=== PATIENT | female | born 1975 | race Caucasian/White ===

== ENCOUNTER 2017-09-11 05:57 | Emergency (ER) | payer MEDICAID ==
[~2017-09-11] VITALS: Ht 172.7 cm; Wt 54.6 kg
[2017-09-11 06:06] VITALS: Ht 172.7 cm; Wt 54.6 kg
--- NOTE | 2017-09-11 06:31 | ERD ---
ER Documentation Chief Complaint Chief Complaint vaginal bleed x5 days, getting worse, 10 weeks . HPI This is a 42-year-old female who presents the emergency department today complaining of vaginal bleeding for the past week. Patient states she is approximately 10 weeks . States that days ago she went to another hospital and was told everything was fine was given antibiotics to treat bacterial vaginosis and given vitamins that she does not yet have a OB doctor. States she has intermittent cramping but has not taken any medication for the pain. Denies any vomiting, dysuria, fevers or chills. ROS All systems reviewed and are negative except as per history of present illness. Medications Home Meds Active Scripts Cephalexin* (Keflex*) 500 Mg Capsule, 500 MG PO QID for 7 Days, CAP Prov:KEVIN BARROSO PA-C 09/11/17 Acetaminophen* (Tylophen*) 500 Mg Capsule, 1 CAP PO Q6H Y for PAIN AND OR ELEVATED TEMP, #30 CAP Prov:KEVIN BARROSO PA-C 09/11/17 Metronidazole* (Metrogel* Vaginal) 0.75% -70 Gram Gel.w.appl, 1 APPFUL VAG QHS for 5 Days, #1 TUB Prov:KEVIN BARROSO PA-C 09/11/17 Physical Exam Vitals Vital Signs Date Time Temp Pulse Resp B/P Pulse Ox O2 Delivery O2 Flow Rate FiO2 09/11/17 06:06 97.5 99 18 123/82 96 Physical Exam Const: NAD Head: Atraumatic Eyes: Normal Conjunctiva ENT: Normal External Ears, Nose and Mouth. Neck: Full range of motion..~ No meningismus. Resp: Clear to auscultation bilaterally Cardio: Regular rate and rhythm, no murmurs Abd: Soft, mild pelvic tenderness non distended. Normal bowel sounds no tenderness at McBurney's. Skin: No petechiae or rashes Back: No midline or flank tenderness Ext: No cyanosis, or edema Neur: Awake and alert Psych: Normal Mood and Affect Result Diagram: 09/11/17 0643 Results 24 hrs Laboratory Tests Test 09/11/17 06:25 09/11/17 06:43 Urine Color YELLOW Urine Clarity CLOUDY Urine pH 6.0 Urine Specific [place] 1.016 Urine Ketones TRACEmg/dL Urine Nitrite NEGATIVEmg/dL Urine Bilirubin NEGATIVEmg/dL Urine Urobilinogen NEGATIVEmg/dL Urine Leukocyte Esterase 1+Luke/ul Urine Microscopic RBC 4/HPF Urine Microscopic WBC 9/HPF Urine Squamous Epithelial Cells MODERATE/HPF Urine Bacteria FEW/HPF Urine Mucus MANY/HPF Urine Hemoglobin 3+mg/dL Urine Glucose NEGATIVEmg/dL Urine Total Protein 1+mg/dl White Blood Count 6.810^3/ul Red Blood Count 3.8010^6/ul Hemoglobin 12.0g/dl Hematocrit 35.7% Mean Corpuscular Volume 93.9fl Mean Corpuscular Hemoglobin 31.6pg Mean Corpuscular Hemoglobin Concent 33.6g/dl Red Cell Distribution Width 12.4% Platelet Count 62612^3/UL Mean Platelet Volume 11.0fl Neutrophils % 60.4% Lymphocytes % 32.7% Monocytes % 6.3% Eosinophils % 0.1% Basophils % 0.4% Nucleated Red Blood Cells % 0.0/100WBC Neutrophils # 4.110^3/ul Lymphocytes # 2.210^3/ul Monocytes # 0.410^3/ul Eosinophils # 0.010^3/ul Basophils # 0.010^3/ul Nucleated Red Blood Cells # 0.010^3/ul Beta HCG, Quantitative 918022.0mIU/ml DIAGNOSTIC IMAGING REPORT Patient: JAYRO MCCOY : 1975 Age: 42 Sex: F MR #: [id number] DOS: 09/11/17 0625 Ordering MD: KEVIN BARROSO PA-C Location: [facility] Room/Bed: PROCEDURE: US OB. CLINICAL INDICATION: Vaginal bleeding . Clinical estimate gestational age is 10 weeks 1 day with estimated date of delivery 04/08/2018 TECHNIQUE: Transabdominal views of the pelvis are available for review. COMPARISON: No prior studies are available for comparison. FINDINGS: [place]-rump length: 3.56 cm heart rate: 171 beats per minute Ultrasound estimated gestational age: 10 weeks 3 days Estimated date of delivery: 04/06/2018 There is a 2.7 x 2.1 x 3.6 cm area of decreased echogenicity adjacent to the gestational sac suggestive of a subchorionic bleed. No ovarian or adnexal mass lesion is seen. There is a 2 cm left ovarian likely corpus luteum. There is no free fluid. IMPRESSION: Single live intrauterine with an estimated gestational age of 10 weeks 3 days based on ultrasound measurements. Suggestive of subchorionic bleed noted above. RPTAT: HJES .Randy Benavidez MD, Date Time Electronically viewed and signed by .Randy Benavidez MD, MD on 09/11/2017 08:59 .S/ CC: KEVIN BARROSO PA-C Procedures/MDM This is a A1 42-year-old female who presents to the emergency department today complaining of vaginal bleeding. Patient states she is approximately 10 weeks. Given this I did obtain a complete OB workup. Laboratory work no elevated white blood cell count. She is not anemic. Platelets are within normal. UA shows 1+ leukocyte esterase 9 white blood cells. Urine was sent for culture. Beta quant hCG 656523.0 Rh status A + Ultrasound single live intrauterine with an estimated gestational age of 10 weeks and 3 days based on ultrasound measurements. There is heart rate of 171 bpm. There is no ovarian or adnexal mass seen. There is a 2 cm left ovarian likely corpus luteum cyst. There is no free fluid. Patient symptoms at this time is consistent with vaginal bleeding in early and UTI Other differentials to consider early normal versus early failed versus placenta previa versus subchorionic hemorrhage. Patient is afebrile and otherwise well-appearing. I have low suspicion for ectopic , tubo ovarian abscess, ovarian torsion. Patient declined Tylenol here in the emergency department she will be given a prescription for home. Also be given a prescription for Keflex. Patient indicated that she was taking metronidazole pills for BV. I feel that topical metronidazole may be more beneficial to the patient and is not contraindicated in first trimester. I have explained this to the patient. I have explained the results to the patient. I have explained to the patient that they need to follow-up in 48 hours for a repeat beta quant. At this time the patient is stable for discharge and outpatient management. Patient should follow up with their PCP in the next 1-2 days. They may return to the emergency department sooner for any persistent or worsening of symptoms. Patient understood and agreed with the plan. Departure Diagnosis: Primary Impression: Vaginal bleeding in patient at less than 20 weeks gestation Additional Impression: UTI (urinary tract infection) Urinary tract infection type: site unspecified Hematuria presence: without hematuria Qualified Code: N39.0 - Urinary tract infection without hematuria, site unspecified Condition: KEVIN Ware PA-C Sep 11, 2017 06:31
[2017-09-11 07:08] LABS: BASOPHILS % 0.4 % (0.0-2.0); EOSINOPHILS % 0.1 % (0.0-7.0); HEMATOCRIT 35.7 % (37.0-47.0); LYMPHOCYTES # 2.2 10^3/ul (0.8-2.9); LYMPHOCYTES % 32.7 % (15.0-51.0); MEAN CORPUSCULAR HEMOGLOBIN 31.6 pg (29.0-33.0); MEAN CORPUSCULAR HGB CONC 33.6 g/dl (32.0-37.0); MEAN CORPUSCULAR VOLUME 93.9 fl (82.0-101.0); MONOCYTE # 0.4 10^3/ul (0.3-0.9); MONOCYTES % 6.3 % (0.0-11.0); NEUTROPHIL # 4.1 10^3/ul (1.6-7.5); NEUTROPHILS % 60.4 % (39.0-77.0); PLATELET COUNT 251 10^3/UL (140-415); RED CELL DISTRIBUTION WIDTH 12.4 % (11.5-14.5); WHITE BLOOD COUNT 6.8 10^3/ul (4.8-10.8)
[2017-09-11 07:39] LABS: ADD UMIC YES; UR ASCORBIC ACID 40 mg/dL (NEGATIVE); UR BACTERIA FEW /HPF (NONE SEEN); UR BILIRUBIN (Dip) NEGATIVE (NEGATIVE); UR BLOOD (Dip) 3+ mg/dL (NEGATIVE); UR CLARITY CLOUDY (CLEAR); UR COLOR YELLOW (YELLOW); UR GLUCOSE (Dip) NEGATIVE (NEGATIVE); UR KETONES (Dip) TRACE mg/dL (NEGATIVE); UR LEUKOCYTE ESTERASE (Dip) 1+ Leu/ul (NEGATIVE); UR MUCUS MANY /HPF (NONE SEEN); UR NITRITE (Dip) NEGATIVE (NEGATIVE); UR RBC 4 /HPF (0-5); UR SPECIFIC GRAVITY (Dip) 1.016 (1.003-1.030); UR SQUAMOUS EPITHELIAL CELL MODERATE /HPF (FEW); UR TOTAL PROTEIN (Dip) 1+ mg/dl (NEGATIVE); UR UROBILINOGEN (Dip) NEGATIVE (NEGATIVE)
--- NOTE | 2017-09-11 09:00 | RADRPT ---
PROCEDURE: US OB. CLINICAL INDICATION: Vaginal bleeding . Clinical estimate gestational age is 10 weeks 1 day with estimated date of delivery 04/08/2018 TECHNIQUE: Transabdominal views of the pelvis are available for review. COMPARISON: No prior studies are available for comparison. FINDINGS: [place]-rump length:3.56 cm heart rate:171 beats per minute Ultrasound estimated gestational age:10 weeks 3 days Estimated date of delivery: 04/06/2018 There is a 2.7 x 2.1 x 3.6 cm area of decreased echogenicity adjacent to the gestational sac suggest brian of a subchorionic bleed. No ovarian or adnexal mass lesion is seen. There is a 2 cm left ovarian likely corpus luteum. There is no free fluid. IMPRESSION: Single live intrauterine with an estimated gestational age of 10 weeks 3 days based on ult rasound measurements. Suggestive of subchorionic bleed noted above. RPTAT: HJES .Randy Benavidez MD, Date Time Electronically viewed and signed by .Randy Benavidez MD, on 09/11/2017 08:59 .S/
[2017-09-11] MEDS ORDERED: ACET500C5 PO (09:21)
[2017-09-11] MEDS ORDERED: METR70GE15 VAG (09:21)
[2017-09-11] MEDS ORDERED: CEPH-443 PO (09:21)
[2017-09-11 09:36] VITALS: BP 128/76; PULSE 76; RESP 19; TEMP 98.5
== END 2017-09-11 09:37 | disposition home or self-care (01) ==
LOC: FTE 05:57
DX: O20.9 Hemorrhage in early pregnancy, unspecified (principal); O23.41 Unspecified infection of urinary tract in pregnancy, first trimester; R10.2 Pelvic and perineal pain; Z3A.10 10 weeks gestation of pregnancy
CPT/HCPCS: 36415; 76801; 81001; 84702; 85025; 86900; 86901; 87086; Z7502

== ENCOUNTER 2018-03-31 06:45 | Inpatient (IN) | END 2018-04-01 22:00 | disposition home or self-care (01) | DRG 775 ==

== ENCOUNTER 2018-05-07 22:01 | Emergency (ER) | END 2018-05-08 01:10 | disposition home or self-care (01) ==